=== PATIENT | male | born 1970 | race Caucasian/White ===

== ENCOUNTER 2019-07-11 16:02 | Emergency (ER) | payer OTHER, SELFPAY ==
--- NOTE | ~2019-07-11 | CT_ITS ---
EXAMINATION: CT facial bones w con EXAM DATE: 07/11/2019 18:02 INDICATION: Left mandibular swelling, tooth pain. TECHNIQUE: Spiral CT of the facial bones was acquired in the axial plane following intravenous inject ion of 75 mL Omnipaque 350. Coronal reformatted images were also reviewed. The dose-length product (DLP) for this examination was 720.99 mGy-cm. The exposure was tailored according to patient size, a nd iterative reconstruction (ASIR) was used as additional dose reduction technique. There is no prio r study for comparison. FINDINGS: There are multiple dental cavities. There is swelling over the left mandibular body and chi n. No facial abscess. Some reactive submandibular, internal jugular lymph nodes. Submandibular and pa rotid glands are unremarkable. There are no displaced nasal bone fractures. The mandible, sinuses and orbits are intact. The orbit s, globes and extraocular muscles are unremarkable. Bilateral cataract surgery. There is large left frontal sinus which is completely opacified, along with most of the left-sided et hmoid air cells. There is moderate right ethmoid and maxillary sinus mucoperiosteal thickening. Mild to moderate left maxillary sinus mucoperiosteal thickening. There is moderate leftward nasal septal d eviation. No sinus air-fluid levels. IMPRESSION: 1. Dental cavities, left facial swelling could be odontogenic. 2. Extensive sinus mucoperiosteal thickening. 3. No abscess. Reviewed, dictated and finalized at location A.
[2019-07-11 16:08] VITALS: BP 177/90; PULSE 65; RESP 16; TEMP 37.6; O2SAT 98
[2019-07-11 17:18] LABS: Basophils Percent Auto 0.6 % (0.2-1.2); Eosinophils Absolute Auto 0.1 K/mm3 (0-0.3); Eosinophils Percent Auto 0.7 % (0-4.4); Hematocrit 50.4 % (42.0-52.0); Immature Granulocyte Absolute 0.04 K/mm3 (0.00-0.031); Immature Granulocyte Percent A 0.6 % (0-0.5); Lymphocytes Absolute Auto 0.64 K/mm3 (0.9-3.2); Lymphocytes Percent Auto 9.2 % (18.3-44.2); Mean Corpuscular HGB Conc 33.7 g/dl (32-36); Mean Corpuscular Hemoglobin 34.3 pg (26-34); Mean Corpuscular Volume 101.6 fl (80-100); Mean Platelet Volume 9.9 fl (7.4-10.4); Monocytes Absolute Auto 0.9 K/mm3 (0.1-0.6); Monocytes Percent Auto 13.2 % (2.6-8.5); Neutrophils Absolute Auto 5.3 K/mm3 (1.3-6.7); Neutrophils Percent Auto 75.7 % (45.5-73.1); Platelet Count Result 159 k/mm3 (150-375); Red Blood Count 4.96 M/mm3 (4.6-6.20); Red Cell Distribution Width 12.2 % (11.5-14.5)
[2019-07-11 17:33] LABS: Blood Urea Nitrogen 4 mg/dL (9-20); CRP 4.3 mg/dL (<1.0); Calcium 9.5 mg/dL (8.4-10.2); Carbon Dioxide 28 mmol/L (22-30); Chloride 97 mmol/L (98-107); Estimated CRCL calculation 139 ml/min; Estimated Glomerular Filt Rate > 60; Glucose 101 mg/dL (75-110); Sodium 132 mmol/L (137-145)
[2019-07-11 17:43] LABS: Erythrocyte Sedimentation Rate 5 mm/hr (0-20)
--- NOTE | 2019-07-11 18:18 | ED.DENTAL ---
HPI - Dental/Oral General Chief complaint: Dental/Oral <RAYN Mehta Last Filed: 07/11/19 19:23> Stated complaint: tooth infection <RYAN Mehta Last Filed: 07/11/19 19:23> Time Seen by Provider: 07/11/19 16:49 <RYAN Mehta Last Filed: 07/11/19 19:23> Source: patient <RYAN Mehta Last Filed: 07/11/19 19:23> Mode of arrival: ambulatory <RYAN Mehta Last Filed: 07/11/19 19:23> Limitations: no limitations <RYAN Mehta Last Filed: 07/11/19 19:23> History of Present Illness HPI Narrative: This is a 48 year old male that presents to the ER for toothache for the last week. Reports pain in multiple teeth on the left side of the mouth. Reports swelling to the lower jaw. Reports he has not seen a dentist in some time due to insurance issues. Reports multiple broken teeth. Denies fever, or drainage. <RYAN Mehta Last Filed: 07/11/19 19:23> MD Complaint: tooth pain <RYAN Mehta Last Filed: 07/11/19 19:23> Location: Tooth # (10,11 and 20) <RYAN Mehta Last Filed: 07/11/19 19:23> Related Data Home medications: Home Medications Medication Instructions Recorded Confirmed albuterol sulfate 1 inh INHALATION Q4-5H PRN 07/11/19 famotidine 20 mg PO DAILY 07/11/19 fluticasone propion-salmeterol 1 inh INHALATION DAILY 07/11/19 losartan 25 mg PO DAILY 07/11/19 <RYAN Mehta Last Filed: 07/11/19 19:23> Allergies/adverse reactions: Allergies Allergy/AdvReac Type Severity Reaction Status Date / Time No Known Allergies Allergy Unverified 07/11/19 16:20 <RYAN Mehta Last Filed: 07/11/19 19:23> Review of Systems Review of Systems: Narrative: CONSTITUTIONAL: Denies fever ENT: Reports dentalgia. Denies dysphagia RESPIRATORY: Denies dyspnea <Charisma Bryant PA-C - Last Filed: 07/11/19 19:23> All systems reviewed & are unremarkable except as noted in HPI and below <Charisma Bryant PA-C - Last Filed: 07/11/19 19:23> PMFSH Past Medical History Medical History: Medical History (Updated 07/11/19 @ 19:22 by Charisma Bryant PA-C) History of asthma History of gastroesophageal reflux (GERD) History of hypertension <Charisma Bryant PA-C - Last Filed: 07/11/19 19:23> Social History Social History: Social History (Updated 07/11/19 @ 18:23 by Charisma Bryant PA-C) Smoking status: Current every day smoker <Charisma Bryant PA-C - Last Filed: 07/11/19 19:23> Exam Narrative: Exam Narrative: GENERAL: Well-appearing, well-nourished, and in no acute distress. HEAD: Normocephalic, atraumatic. EYES: EOMI. ENT: Mucous membranes moist. Oropharynx without tonsillar hypertrophy exudate or other lesions. No trismus. Poor dentition. Multiple broken and rotten teeth. No evidence of dental abscess. Mild edema over the left mandible NECK: Supple. No adenopathy or masses. CHEST: Clear to auscultation. No respiratory distress. No wheezes rales or rhonchi HEART: Regular rate and rhythm. No murmur heard. Normal peripheral pulses. ABDOMEN: Soft, nontender, nondistended, normal active bowel sounds. EXTREMITIES: Normal range of motion. No edema. SKIN: Warm, dry, no rash. NEURO: No focal deficits. Alert and oriented x3. PSYCH: Normal mood and affect <Charisma Bryant PA-C - Last Filed: 07/11/19 19:23> Course Vital Signs Vital signs: Vital Signs Temperature 99.6 F 07/11/19 16:08 Pulse Rate 65 07/11/19 16:08 Respiratory Rate 16 07/11/19 16:08 Blood Pressure 177/90 H 07/11/19 16:08 Pulse Oximetry 98 07/11/19 16:08 Temperature 99.6 F 07/11/19 16:08 Pulse Rate 78 07/11/19 19:45 Respiratory Rate 20 07/11/19 19:45 Blood Pressure 168/98 H 07/11/19 19:45 Pulse Oximetry 98 07/11/19 19:45 <Charisma Bryant PA-C - Last Filed: 07/11/19 19:23> Vital Signs Temperature 99.6 F 07/11/19 16:08 P
[2019-07-11] MEDS: CLINDAMYCIN 600 MG/NS 50 ML 600 MG/50 ML PIGGYBACK 100 MG IVPB (18:55)
[2019-07-11 19:45] VITALS: BP 168/98; PULSE 78; RESP 20; O2SAT 98
== END 2019-07-11 19:47 | disposition home or self-care (01) ==
PROVIDERS: Physician Assistant; Emergency Provider Emergency Medicine
DX: K04.7 Periapical abscess without sinus (principal); J45.909 Unspecified asthma, uncomplicated; K21.9 Gastro-esophageal reflux disease without esophagitis; I10 Essential (primary) hypertension; F17.200 Nicotine dependence, unspecified, uncomplicated
CPT/HCPCS: 36415; 70487; 80048; 85025; 85652; 86140; 96365; 99284; A9270; Q9967

== ENCOUNTER 2021-05-31 13:59 | Observation (INO) | payer OTHER, SELFPAY ==
[2021-05-31] VITALS (16 sets, daily range): BP systolic 114–157; BP diastolic 63–82; PULSE 76–97; RESP 15–21; TEMP 36.6–37.7; O2SAT 93–98; BMI 30.9
--- NOTE | ~2021-05-31 | XR_ITS ---
EXAMINATION: XR chest 1V portable Exam Date/Time: 05/31/2021 16:05 CDT CLINICAL HISTORY: chest pain, syncope, HTN Comparison: 12/30/2017 RESULT: Lines, tubes, and devices: None. Lungs and pleura: Clear. Cardiomediastinal silhouette: Stable cardiomediastinal silhouette. Other: No acute osseous or upper abdominal finding. IMPRESSION: No acute cardiopulmonary process. Reviewed, dictated and finalized at location K.
--- NOTE | ~2021-05-31 | NM_ITS ---
EXAMINATION: NM ryland stress w perfusion DATE: 06/02/2021 15:21 INDICATION: Chest pain. Syncope. TECHNIQUE: Rest images were obtained following intravenous administration of 10.1 mCi Tc99m tetrofosm in (Myoview). The patient was infused intravenously with Lexiscan (regadenoson). Then, 29.2 mCi Tc99m tetrofosmin (Myoview) was administered intravenously, and stress images were obtained. Data was abdi nstructed into short axis and horizontal and vertical long axis SPECT images. Gated SPECT images were also obtained. COMPARISON: None. FINDINGS: Increased activity below the diaphragm decreases sensitivity and specificity in the inferio r wall. There is no definite reversible or fixed perfusion abnormality to suggest ischemia or infarct ion. There is no segmental wall motion abnormality. Left ventricular ejection fraction measures 65% . IMPRESSION: 1. No definite ischemia or infarct. 2. Normal left ventricular ejection fraction measuring 65%. Reviewed, dictated and finalized at location A.
--- NOTE | ~2021-05-31 | CT_ITS ---
EXAMINATION: CT brain wo con DATE: 06/02/2021 08:32 INDICATION: Syncope. TECHNIQUE: Computed tomography (CT) of the head was performed without intravenous contrast. The mA wa s adjusted according to patient size. Iterative reconstruction technique was employed. The dose-lengt h product was 681.00 mGy-cm. COMPARISON: Head CT 12/30/2017 FINDINGS: There is no intracranial hemorrhage, acute infarction, or abnormal intracranial mass lesion . The ventricles are normal in size. There are likely changes of ocular lens replacement surgeries. T here is mucosal thickening in the paranasal sinuses. The mastoid air cells are normal. IMPRESSION: 1. Normal brain. Reviewed, dictated and finalized at location A. IMPRESSION: 1. Normal brain.
--- NOTE | ~2021-05-31 | US_ITS ---
EXAMINATION: US carotid duplex BI DATE: 06/01/2021 09:22 INDICATION: Transient alteration of awareness TECHNIQUE: Grayscale, color Doppler, and pulsed Doppler images of the cervical carotid arteries were obtained. The degree of vessel stenosis is placed in one of the following categories: normal, <50%, 5 0-69%, >=70% but less than near-occlusion, near-occlusion, or total occlusion. Note that percent sten osis relative to normal distal artery lumen diameter is indirectly measured from velocity measurement s as described by Stephen, et al. Radiology 2003; 229:[id number]. COMPARISON: None. FINDINGS: RIGHT: The right common carotid artery (CCA) peak systolic velocity (PSV) is 89 cm/s. The right internal car otid artery (ICA) PSV is 65 cm/s. The right ICA end-diastolic velocity (EDV) is 14 cm/s. The right IC A/CCA PSV ratio is 0.7. Grayscale and color Doppler images yield an estimate of less than 50% diamete r reduction from plaque in the ICA. The external carotid artery (ECA) PSV is 110 cm/s. There is anteg rade flow in the right vertebral artery. LEFT: The left CCA PSV is 79 cm/s. The left ICA PSV is 73 cm/s. The left ICA EDV is 18 cm/s. The left ICA/C CA PSV ratio is 0.9. Grayscale and color Doppler images yield an estimate of less than 50% diameter r eduction from plaque in the ICA. The ECA PSV is 96 cm/s. There is antegrade flow in the left vertebra l artery. IMPRESSION: 1. <50% stenosis in the right internal carotid artery. 2. <50% stenosis in the left internal carotid artery. Reviewed, dictated and finalized at location A.
--- NOTE | 2021-05-31 14:12 | ECG_ITS ---
Measurements Intervals [place] Rate: 81 P: 63 [place]: 156 QRS: -27 QRSD: 97 T: 72 QT: 385 QTc: 449 Interpretive Statements SINUS RHYTHM BASELINE ARTIFACT LEADS I AND II NONSPECIFIC ST & T-WAVE ABNORMALITY BORDERLINE ECG NO PREVIOUS ECG AVAILABLE FOR COMPARISON Electronically Signed On 06-01-2021 16:11:01 CDT by Jack Gutierrez M.D.
[2021-05-31 14:24] LABS: Basophils Percent Auto 0.4 % (0.2-1.2); Eosinophils Absolute Auto 0.1 K/mm3 (0-0.3); Eosinophils Percent Auto 0.9 % (0-4.4); Hematocrit 53.1 % (42.0-52.0); Hemoglobin 17.9 g/dL (14.0-18.0); Immature Granulocyte Absolute 0.04 K/mm3 (0.00-0.031); Immature Granulocyte Percent A 0.5 % (0-0.5); Lymphocytes Absolute Auto 0.77 K/mm3 (0.9-3.2); Lymphocytes Percent Auto 10.4 % (18.3-44.2); Mean Corpuscular HGB Conc 33.7 g/dl (32-36); Mean Corpuscular Hemoglobin 34.3 pg (26-34); Mean Corpuscular Volume 101.7 fl (80-100); Mean Platelet Volume 9.6 fl (7.4-10.4); Monocytes Absolute Auto 0.5 K/mm3 (0.1-0.6); Monocytes Percent Auto 6.2 % (2.6-8.5); Neutrophils Absolute Auto 6.1 K/mm3 (1.3-6.7); Neutrophils Percent Auto 81.6 % (45.5-73.1); Platelet Count Result 194 k/mm3 (150-375); Red Blood Count 5.22 M/mm3 (4.6-6.20); Red Cell Distribution Width 12.9 % (11.5-14.5); White Blood Count 7.4 K/mm3 (4.5-10.0)
[2021-05-31 14:43] LABS: Alanine Aminotransferase 29 U/L (4-50); Albumin Level 4.5 g/dL (3.5-5.1); Alkaline Phosphatase 52 U/L (38-126); Anion Gap 14 mmol/L (8-16); Aspartate Amino Transferase 43 U/L (17-59); Bilirubin,Total 0.6 mg/dL (0.2-1.3); Blood Urea Nitrogen 9 mg/dL (9-20); Carbon Dioxide 22 mmol/L (22-30); Chloride 108 mmol/L (98-107); Estimated CRCL calculation 110 ml/min; Estimated Glomerular Filt Rate > 60; Glucose 124 mg/dL (65-110); Potassium 3.8 mmol/L (3.4-5.0); Sodium 144 mmol/L (137-145)
--- NOTE | 2021-05-31 14:44 | ED.SYNCOPE ---
HPI - Syncope General Chief Complaint: Syncope Stated Complaint: syncopal episode Time Seen by Provider: 05/31/21 14:26 Source: patient Mode of arrival: ambulatory Limitations: no limitations History of Present Illness HPI narrative: 50-year-old male presents emergency room secondary to syncopal episode. He states he was at home and went to the bathroom and came out and felt dizzy and weak and passed out. He woke up people around him stating medialized. Patient has been having chest discomfort the last several weeks which she has been ignoring. He describes his discomfort across his chest with radiation to both of his arms. He is also complains of nonspecific abdominal pain states has had bloody stools. He has underlying history of COPD as well as hypertension but is not compliant with taking any of his medications. He has been smoking for over 45 years from the alcohol having had 2 drinks already today. Related Data Home Medications Medication Instructions Recorded Confirmed No Home Medications 05/31/21 05/31/21 Allergies Allergy/AdvReac Type Severity Reaction Status Date / Time No Known Allergies Allergy Verified 05/31/21 14:22 Review of Systems Review of Systems: CONSTITUTIONAL: Denies fever, chills, or sweats. EYES: Denies visual changes, redness, or discharge. ENT: Denies rhinorrhea, congestion, sore throat, or otalgia. CARDIOVASCULAR: Denies palpitations, or edema. Having chest pain as noted in HPI RESPIRATORY: Denies cough or dyspnea. GASTROINTESTINAL: Denies abdominal nausea, vomiting, or diarrhea. Bloody stools passing clots at time. Having some nonspecific abdominal pain GENITOURINARY: Denies dysuria or hematuria. SKIN: Denies rash or itching. MUSCULOSKELETAL: Denies back pain, joint pain, or myalgia. NEUROLOGIC: Denies headache, numbness, or weakness. PSYCHIATRIC: Denies anxiety or depression. [facility] Past Medical History Medical History (Updated 05/31/21 @ 15:55 by Tania Oliver PA-C) Dyslipidemia Gastroesophageal reflux disease Hypertension Surgical History Surgical History (Updated 05/31/21 @ 15:54 by Tania Oliver PA-C) History of bilateral cataract extraction Social History Social History (Updated 05/31/21 @ 15:55 by Tania Oliver PA-C) Social History: Lives in [place]. Smokes Surrogate decision maker: Code status: Full code. Exam Narrative: APPEARANCE: Well appearing, no pain in distress, well-nourished. Head normocephalic atraumtaic. EYES: PERRLA/EOMI, conjunctivae very clear. NOSE: Normal no drainage EARS:TMS clear Fito Henderson, with good light reflex. THROAT: Pharynx clear, no exudate. NECK: Supple. No adenopathy, no masses. RESPIRATORY: Airway patent, repsirations nonlabored. Clear to auscultation bilaterally, no rales, rhonchi, wheezing. CARDIOVASCULAR: Regular rate and rhythm without murmurs rubs or gallops. ABDOMINAL: Soft, nontender, nondistended, no hepatosplenomegally MUSCULOSKELETAl: Moves all extremities. Strenght/ROM intact, No edema, No calf tenderness. NEURO: Alert. Cranial nerves II through XII intact. Good gait. Good coordination SKIN:: Warm, dry. Normal Color PSYCHIATRIC: Normal affect/mood, normal interaction with parents. Rectal: No masses. Faintly hemoccult positive Course Vital Signs Vital signs: Vital Signs Temperature 97.9 F 05/31/21 14:08 Pulse Rate 89 05/31/21 14:08 Respiratory Rate 18 05/31/21 14:08 Blood Pressure 142/68 H 05/31/21 14:08 Pulse Oximetry 96 05/31/21 14:08 Temperature 97.9 F 05/31/21 14:08 Pulse Rate 93 05/31/21 14:13 Respiratory Rate 18 05/31/21 14:08 Blood Pressure 142/68 H 05/31/21 14:08 Pulse Oximetry 96 05/31/21 14:08 MDM - Syncope MDM Narrative Medical decision making narrative: Patient presents with multiple complaints including a syncopal episode today. He states he been having more bloody stools lately with blood clots. Has some nonspecific abdominal
[2021-05-31 15:18] LABS: Partial Thromboplastin Time 26.4 SECONDS (22.3-36.8)
[2021-05-31 15:23] LABS: Prothrombin Time 13.2 Seconds (11.1-14.7); Troponin I < 0.012 ng/mL (0.000-0.034)
--- NOTE | 2021-05-31 15:50 | PM.IMHP ---
H&P: HPI History of Present Illness Date/Time: 05/31/21 15:50 <Tania Olievr PA-C - Last Filed: 05/31/21 21:51> Chief Complaint: Syncope. <Tania Oliver PA-C - Last Filed: 05/31/21 21:51> Narrative: This is a 50-year-old male smoker with untreated hypertension and sleep apnea who presented to the emergency department via EMS for evaluation after syncopal episode. Not long prior to arrival he ?started to feel weird? and he walked to the bathroom where he reportedly had a normal bowel movement. As he stood up to exit to the restroom he began feeling very weak and lightheaded and the next thing he knew he was waking up with multiple people around him. Those nearby him reported that he had a brief loss of consciousness and there was no mention of seizure-like activity. He was brought to the ER for evaluation at which time he reported intermittent low sternal chest discomfort that he describes as aching and occasionally stabbing in nature. At times it radiates into the arms. These symptoms are self-limiting and seem to last for only a short period of time. It is my understanding that this has been ongoing for several weeks and he sees no significant pattern as to when it occurs, specifically denying that the chest discomfort is associated with exertion or eating. Additionally he has had occasional lower abdominal cramping and he has noticed small amounts of bright red blood per rectum with some but not all bowel movements. He has no known hemorrhoids and he denies straining with bowel movements. He has occasional GERD symptoms but nothing significant however he notes an increase in belching recently. EKG done on arrival showed no acute ST segment changes and his initial troponin level was undetectable. He is feeling okay at the time my evaluation and he is not having any discomfort. He has no known history of cardiac disease and in fact he had a stress echo in 12/2017 which showed no evidence of ischemia. He did headache, vertigo, focal weakness, paresthesias, cold and flu symptoms, GERD symptoms, nausea, vomiting, diarrhea, shortness of breath, pleuritic pain, palpitations, and edema. No significant alcohol, caffeine, or NSAID use. <Tania Oliver PA-C - Last Filed: 05/31/21 21:51> Review of Systems Review of Systems: Twelve systems were reviewed and are negative except for as per HPI. <Tania Oliver PA-C - Last Filed: 05/31/21 21:51> [facility] Past Medical History Medical History: Medical History Dyslipidemia Gastroesophageal reflux disease Hypertension Obstructive sleep apnea Tobacco use <Tania Oliver PA-C - Last Filed: 05/31/21 21:51> Surgical History Surgical History: Surgical History (Updated 05/31/21 @ 15:54 by Tania Oliver PA-C) History of bilateral cataract extraction <Tania Oliver PA-C - Last Filed: 05/31/21 21:51> Family History Family History: Family History (Updated 05/31/21 @ 21:43 by Tania Oliver PA-C) Mother Cancer Father Acute myocardial infarction Cerebrovascular accident Kidney failure <Tania Oliver PA-C - Last Filed: 05/31/21 21:51> Social History Social History: Social History (Updated 05/31/21 @ 21:44 by Tania Oliver PA-C) Social History: Lives in [place]. Smokes about 10 cigarettes a day, rolls his own. Drinks 4 to 5 beers a couple of days a week. No illicit substance use. Surrogate decision maker: Cyn Marr, significant other. Code status: Do not resuscitate. Spiritual care concerns: No <Tania Oliver PA-C - Last Filed: 05/31/21 21:51> Meds Home Medications and Allergies Home medications: Home Medications Medication Instructions Recorded Confirmed Type No Home Medications 05/31/21 05/31/21 History <Tania Oliver PA-C - Last Filed: 05/31/21 21:51> Allergies/Adverse reactions: Allergies Allergy/AdvReac Type Severity Reaction Status Date
--- NOTE | 2021-05-31 17:41 | ADMGEN ---
This patient, Kodak Nguyen, was admitted to 3 [facility] Surg Room 327-01 at 1705. Patient/family oriented to hospital policies and general routines including ID bracelet, bed and alarms, visiting hours, pain management, procedures, bathroom and other care routines, personal items, smoking policy, room service/diet, and visiting hours. Information on how to activate the Rapid Response Team has been discussed. Patient/Family are encouraged to report perceived risks to care and to ask questions if they do not understand what they are told or what they should do.
--- NOTE | 2021-05-31 17:52 | PC.NURSE ---
pts chewing tobacco in locked closet in room.
[2021-05-31 22:11] LABS: Hematocrit 49.4 % (42.0-52.0); Hemoglobin 16.5 g/dL (14.0-18.0)
[2021-05-31 22:35] LABS: Troponin I < 0.012 ng/mL (0.000-0.034)
[2021-06-01] VITALS (14 sets, daily range): BP systolic 162–191; BP diastolic 77–109; PULSE 58–80; RESP 16–18; TEMP 36.5–36.7; O2SAT 96–97
[2021-06-01 06:11] LABS: Hematocrit 50.6 % (42.0-52.0); Hemoglobin 16.6 g/dL (14.0-18.0); Mean Corpuscular HGB Conc 32.8 g/dl (32-36); Mean Corpuscular Hemoglobin 33.3 pg (26-34); Mean Corpuscular Volume 101.6 fl (80-100); Mean Platelet Volume 9.8 fl (7.4-10.4); Platelet Count Result 161 k/mm3 (150-375); Red Blood Count 4.98 M/mm3 (4.6-6.20); Red Cell Distribution Width 12.8 % (11.5-14.5); White Blood Count 6.5 K/mm3 (4.5-10.0)
[2021-06-01 06:21] LABS: Anion Gap 2 mmol/L (8-16); Blood Urea Nitrogen 11 mg/dL (9-20); Calcium 8.6 mg/dL (8.4-10.2); Carbon Dioxide 30 mmol/L (22-30); Chloride 104 mmol/L (98-107); Estimated CRCL calculation 108 ml/min; Estimated Glomerular Filt Rate > 60; Glucose 99 mg/dL (65-110); Magnesium 1.6 mg/dL (1.6-2.3); Potassium 3.9 mmol/L (3.4-5.0); Sodium 136 mmol/L (137-145)
[2021-06-01] MEDS: hydroCHLOROthiazide 25 MG TABLET PO (09:00)
[2021-06-01] MEDS: PANTOPRAZOLE 40 MG TABLET PO (09:00)
--- NOTE | 2021-06-01 10:23 | PM.IMPN ---
Progress Note: A&P Assessment and Plan (1) Syncope: Code(s): R55 - Syncope and collapse Status: Acute Assessment and Plan: Possible vasovagal or micturition syncope given the fact that he just use the restroom. Carotid US unremarkable. -Echo pending and may not be completed until Wednesday -June discharge pending completion of TTE (2) Hypertension: Code(s): I10 - Essential (primary) hypertension Status: Acute Assessment and Plan: Per report, patient stopped about a month ago. -Started HCTZ 25 mg po daily (3) Obstructive sleep apnea: Code(s): G47.33 - Obstructive sleep apnea (adult) (pediatric) Status: Acute Assessment and Plan: He has a CPAP at home however does not wear it. (4) Tobacco use: Code(s): Z72.0 - Tobacco use Status: Acute Assessment and Plan: Smoking cessation is encouraged. Nicotine patch available if needed. (5) Rectal bleeding: Code(s): K62.5 - Hemorrhage of anus and rectum Status: Acute Assessment and Plan: Stool guaiac. Need FIT testing outpatient vs colonoscopy as he has no screening colonoscopy. Subjective Date/time seen: Date of Service 06/01/21 1030 Patient denies chest pain, shortness of breath, difficulty breathing. Says he had a syncopal episode a few years ago but was never told the cause. He says he has not seen his doctor in 2-3 years but that he was scheduled for appointment on June 10. Review of Systems Cardiovascular: Cardiovascular: Denies chest pain, Denies lightheadedness and Denies palpitations Respiratory: Respiratory: Denies dyspnea Exam Narrative: GENERAL: NAD, cooperative HEENT: Normocephalic, atraumatic, anicteric, NECK:Supple CV: Normal S1, S2, RRR, No MRG RESP: CTAB, Normal work of breathing. Abdomen: Soft, non-tender, non-distended, +BS : Deferred rectal EXTREMITIES: Warm and well perfused, no clubbing, cyanosis, or edema. SKIN: warm, dry and intact. NEURO:CN 2-12 grossly intact. Objective Data Vital Signs Vital Signs: Vital Signs - 24 hr 05/31/21 14:08 05/31/21 14:13 05/31/21 14:40 Temperature 97.9 F Pulse Rate 89 93 77 Respiratory Rate 18 21 H Blood Pressure 142/68 H Pulse Oximetry 96 95 05/31/21 14:45 05/31/21 14:47 05/31/21 15:03 Temperature Pulse Rate 78 79 77 Respiratory Rate 21 H 21 H 20 Blood Pressure 120/63 Pulse Oximetry 93 94 95 05/31/21 15:15 05/31/21 15:30 05/31/21 15:32 Temperature Pulse Rate 79 80 76 Respiratory Rate 18 18 15 Blood Pressure 117/79 Pulse Oximetry 96 95 96 05/31/21 15:45 05/31/21 15:47 05/31/21 16:00 Temperature Pulse Rate 81 76 87 Respiratory Rate 17 18 21 H Blood Pressure 114/69 Pulse Oximetry 96 98 05/31/21 17:00 05/31/21 17:15 05/31/21 20:00 Temperature 98.5 F Pulse Rate 97 81 85 Respiratory Rate 20 16 Blood Pressure 130/82 144/72 H Pulse Oximetry 98 96 05/31/21 22:00 06/01/21 00:00 06/01/21 04:00 Temperature 99.8 F H Pulse Rate 80 80 68 Respiratory Rate 16 Blood Pressure 157/82 H Pulse Oximetry 94 06/01/21 06:00 06/01/21 08:00 Temperature 97.8 F Pulse Rate 63 58 L Respiratory Rate 16 Blood Pressure 162/99 H Pulse Oximetry 97 Intake/Output Intake/Output: Intake & Output 05/29/21 05/30/21 05/31/21 06/01/21 23:59 23:59 23:59 23:59 Intake Total 1110 Balance 1110 Meds/Results Medications: Active Medications Generic Name Dose Route Start Last Admin Trade Name Freq PRN Reason Stop Dose Admin Hydrochlorothiazide 25 mg 06/01/21 09:00 06/01/21 09:00 Hydrochlorothiazide 25 Mg Tablet PO 25 mg QAM TANNER Administration Nicotine 1 patch 05/31/21 18:03 Nicotine (*Pbkc) 21 Mg Patch TRANSDERM QAM PRN Nicotine Cravings Pantoprazole Sodium 40 mg 06/01/21 09:00 06/01/21 09:00 Pantoprazole 40 Mg Tablet PO 40 mg QAM TANNER Administration Perflutren Lipid Microsphere
[2021-06-01] MEDS: hydrALAZINE HCL 20 MG/ML VIAL 10 MG IV PUSH (16:10)
[2021-06-02] VITALS (9 sets, daily range): BP systolic 138–185; BP diastolic 83–97; PULSE 61–91; RESP 18–19; TEMP 36.2–37.4; O2SAT 96–97
[2021-06-02] MEDS: PANTOPRAZOLE 40 MG TABLET PO (09:06)
[2021-06-02] MEDS: hydroCHLOROthiazide 25 MG TABLET PO (09:06)
--- NOTE | 2021-06-02 09:07 | PM.IMPN ---
Progress Note: A&P Assessment and Plan (1) Syncope: Code(s): R55 - Syncope and collapse Status: Acute Assessment and Plan: Possible vasovagal or micturition syncope given the fact that he just use the restroom. Trop negative x2. Carotid US unremarkable. Echo pending. EKG showing lateral T wave changes (new from 2018). Check CT brain. Repeat EKG. NPO for possible stress test. (2) Hypertension: Code(s): I10 - Essential (primary) hypertension Status: Acute Assessment and Plan: Per report, patient stopped treatment about a month ago. HCTZ started but BP still elevated. Add Lisinopril. (3) Obstructive sleep apnea: Code(s): G47.33 - Obstructive sleep apnea (adult) (pediatric) Status: Acute Assessment and Plan: He is noncompliant with CPAP at home. Compliance was encouraged. Will make his BP harder to control (4) Tobacco use: Code(s): Z72.0 - Tobacco use Status: Acute Assessment and Plan: Urbanon smokes 1/2 ppd. The benefits of smoking cessation were discussed. (5) Rectal bleeding: Code(s): K62.5 - Hemorrhage of anus and rectum Status: Acute Assessment and Plan: Stool guaiac ordered. FIT testing unnecessary since patient needs colonoscopy for his symptoms and for screening purposes. This can be done as outpatient. (6) Chest pain: Code(s): R07.9 - Chest pain, unspecified Status: Acute Assessment and Plan: Patient with chest pain and now with syncopal episode. He does state that his chest pain worsens when he gets upset or emotional. Trop negative but with high lateral T wave changes. Repeat EKG and f/u on Echo results. NPO for possible stress test. Check Lipid panel to furthe risk stratify. Subjective Date/time seen: 06/02/21 09:07 Interval history: 50yo male with untreated HTN and ELVIA here for syncope. Assuming care. Chart reviewed. He complains of lower abdominal pain at times better after a BM. He has been having episodes of rectal bleeding but denies hemorrhoids or rectal burning/itching. Per chart review, stress Echo in 2018 was negative. Drinks 4 beers per week on avaerage Exam Narrative: AF 97.2 185/87 61 81 97% ra Gen - NARD Chest - distant BS CV - RRR S1/S2 Abd - Soft, NT/ND, Positive BS Ext - No pedal edema, 2+ PT bilaterally Psych - Nml mood and affect Skin - Warm and dry Objective Data Vital Signs Vital Signs: Vital Signs - 24 hr 06/01/21 12:00 06/01/21 14:00 06/01/21 16:00 Temperature 98.0 F Pulse Rate 64 69 66 Respiratory Rate 18 Blood Pressure 184/77 H Pulse Oximetry 96 06/01/21 20:00 06/01/21 20:05 06/01/21 20:08 Temperature Pulse Rate 61 75 74 Respiratory Rate Blood Pressure 184/90 H 177/95 H Pulse Oximetry 06/01/21 21:05 06/01/21 21:10 06/02/21 00:00 Temperature 97.7 F Pulse Rate 63 72 78 Respiratory Rate 18 Blood Pressure 184/90 H 178/109 H Pulse Oximetry 96 06/02/21 04:00 06/02/21 06:00 Temperature 97.2 F L Pulse Rate 68 61 Respiratory Rate 18 Blood Pressure 185/87 H Pulse Oximetry 97 Intake/Output Intake/Output: Intake & Output 05/30/21 05/31/21 06/01/21 06/02/21 23:59 23:59 23:59 23:59 Intake Total 2260 500 Balance 2260 500 Meds/Results Medications: Active Medications Generic Name Dose Route Start Last Admin Trade Name Freq PRN Reason Stop Dose Admin Hydralazine HCl 10 mg 06/01/21 15:43 06/01/21 16:10 Hydralazine Hcl 20 Mg/Ml Vial IV PUSH 10 mg Q8H PRN Administration Blood Pressure - High Hydrochlorothiazide 25 mg 06/01/21 09:00 06/02/21 09:06 Hydrochlorothiazide 25 Mg Tablet PO 25 mg QAM TANNER Administration Nicotine 1 patch 05/31/21 18:03 Nicotine (*Pbkc) 21 Mg Patch TRANSDERM QAM PRN Nicotine Cravings Pantoprazole Sodium 40 mg 06/01/21 09:00 06/02/21 09:06 Pantoprazole 40 Mg Tablet PO 40 mg QAM TANNER Administra
--- NOTE | 2021-06-02 09:14 | ECG_ITS ---
Measurements Intervals [place] Rate: 63 P: 55 [place]: 153 QRS: -15 QRSD: 94 T: 74 QT: 430 QTc: 442 Interpretive Statements SINUS RHYTHM INFERIOR MYOCARDIAL INFARCTION , PROBABLY OLD Electronically Signed On 06-02-2021 15:51:12 CDT by Gm Anton M.D.
[2021-06-02 10:11] LABS: Cholesterol 156 mg/dL (0-200); HDL Direct 48 mg/dL; Triglycerides 181 mg/dL (<150)
[2021-06-02 10:26] LABS: LDL Cholesterol Direct 70 mg/dL
[2021-06-02] MEDS: lisinopriL 10 MG TABLET PO (11:12)
[2021-06-02 11:28] LABS: Folic Acid 9.4 ng/mL (2.76->20)
--- NOTE | 2021-06-02 11:33 | EST_ITS ---
Patient Info Name: Kodak Nguyen Age: 50 years : 1970 Gender: Male Ht: 76 in Wt: 245 lbs BSA: 2.46 m2 Exam Date: 06/02/2021 2:27 PM Exam Location: [facility] Stress Patient Status: Inpatient Admit Date: 05/31/2021 Staff Ordering Physician: Milton Martinez MD Attending Provider: Jodi Stout MD Exercise Technologist: Diamond Mittal CT Nurse: YEISON TRUONG NP Exam Type: CA stress ryland w NM Study Info Indications R07.9 - Chest pain, unspecified A regadenoson stress test was performed. Summary 1. ECG portion of the pharmacological stress test is negative for ischemia by EKG criteria. Correlate with myocardial perfusion imaging. Protocol: Lexiscan Stress ECG Details Stage: REST Duration (min): 1 min : 24 sec HR (bpm): 78 SBP (mmHg): 126 DBP (mmHg): 82 Stage: REST Duration (min): 10 min : 47 sec HR (bpm): 103 SBP (mmHg): 126 DBP (mmHg): 82 Stage: STAGE 1 Duration (min): 1 min : 0 sec HR (bpm): 86 SBP (mmHg): 142 DBP (mmHg): 107 Stage: RECOVERY Duration (min): 1 min : 0 sec HR (bpm): 95 SBP (mmHg): 142 DBP (mmHg): 107 Stage: RECOVERY Duration (min): 2 min : 0 sec HR (bpm): 91 SBP (mmHg): 142 DBP (mmHg): 107 Stage: RECOVERY Duration (min): 3 min : 0 sec HR (bpm): 92 SBP (mmHg): 147 DBP (mmHg): 90 Stage: RECOVERY Duration (min): 3 min : 2 sec HR (bpm): 92 SBP (mmHg): 147 DBP (mmHg): 90 Rest HR: 103 bpm Peak HR: 98 bpm Rest Sys BP: 126 mmHg Peak Sys BP: 147 mmHg Max Pred HR: 170 bpm % Max Pred HR: 58 % Target HR: 145 bpm Max RPP: 14,406 bpm*mmHg Total Time: 1 min : 0 sec Rest Lazcano BP: 82 mmHg Peak Lazcano BP: 90 mmHg Total Dose: 0.4 mg Resting ECG SINUS RHYTHM, NONSPECIFIC ST-T ABNORMALITY. Stress ECG Did not meet criteria for ischemia. Arrhythmias No significant arrhythmias. Report Signatures
--- NOTE | 2021-06-02 16:01 | PM.DS ---
DS: Admitting Diagnosis Discharge Date 06/02/21 Admitting Diagnosis Syncope DS: Discharge Diagnosis Discharge Diagnosis (1) Syncope: Code(s): R55 - Syncope and collapse Status: Acute (2) Hypertension: Code(s): I10 - Essential (primary) hypertension Status: Acute (3) Obstructive sleep apnea: Code(s): G47.33 - Obstructive sleep apnea (adult) (pediatric) Status: Acute (4) Tobacco use: Code(s): Z72.0 - Tobacco use Status: Acute (5) Rectal bleeding: Code(s): K62.5 - Hemorrhage of anus and rectum Status: Acute (6) Chest pain: Code(s): R07.9 - Chest pain, unspecified Status: Acute DS: Summary Hospital Course Reason for hospitalization: 50yo male with untreated HTN and ELVIA here for syncope. Please see H&P for details. Hospital Course: Patient was in the bathroom in a trailer that was hot. He began to have pre-syncopal symptoms and left the trailer and went to sit outside but then had a syncopal episode. He has been complaining of chest pain for a few weeks prior to this event. Trop negative x2. Carotid US unremarkable. Echo showing EF 60-65%, Grade II diastolic dysfunction and elevated RA pressure. EKG showing nonspecific ST changes; repeat EKG showing old inferior OK. CT brain showing no acute findings. Lexiscan Stress test performed showing increased activity below the diaphragm which decreases sensitivity and specificity in the inferior wall but no definite reversible or fixed perfusion abnormality to suggest ischemia or infarction. No segmental wall motion. Per report, patient stopped anti-HTN treatment about a month ago. HCTZ started and Lisinopril added. He is noncompliant with CPAP at home and compliance was encouraged. Uncontrolled ELVIA will make his BP harder to control. The benefits of smoking cessation were discussed. B12 level checked due to elevated MCV. B12 was 266. B12 IM once given. Patient has been complaining of intermittent rectal bleeding and lower abdominal pain. Stool guaiac ordered but not collected. HH remained normal. FIT testing unnecessary since patient needs colonoscopy for his symptoms and for screening purposes which can be done as outpatient. Patient has an appointment with his PCP on 06/10 and he will discuss with PCP about arranging for an outpatient colonoscopy. Patient feels well. He overall did well and was able to be discharged home on 06/02/21. Status at Discharge Cognitive/behavioral status at discharge: Stable Time Spent with Patient Time attestation: Total time spent providing and/or coordinating discharge services: 38 minutes Time spent: Greater than 30 minutes Exam Narrative: AF 97.2 185/87 61 81 97% ra Gen - NARD Chest - distant BS CV - RRR S1/S2 Abd - Soft, NT/ND, Positive BS Ext - No pedal edema, 2+ PT bilaterally Psych - Nml mood and affect Skin - Warm and dry DS: Data Data Completed and Pending Labs on day of discharge: Labs from last 24 hours 06/02/21 06/02/21 06/02/21 12:12 09:43 09:43 Triglycerides 181 H Cholesterol 156 LDL Cholesterol Direct 70 HDL Direct 48 Vitamin B12 266.0 Methylmalonic Acid Pending Folate 9.4 TSH (Reflex) 2.700 Discharge Plan Discharge Attending physician on discharge: Milton Martinez Discharging Clinician: Milton Martinez Anticipated Discharge Date/Time: 06/02/21 16:18 Patient Disposition: Home, Self-Care Activity: as tolerated Diet: heart healthy Discharge Instructions: No smoking and avoid all tobacco products. Remember to wear your CPAP at night and with naps Please avoid large gathering, wear face coverings in public and practice social distance. Check blood pressure 1 to 2 times a day. Record and bring into your doctor for review. Call your doctor if your blood pressure is greater than 180/110. Contact your doctor or call 911 and come to the Emergency Room if you have recurrent chest p
--- NOTE | 2021-06-02 21:50 | ECHO_ITS ---
Patient Info Name: Kodak Nguyen Age: 50 years : 1970 Gender: Male Ht: 76 in Wt: 253 lbs BSA: 2.50 m2 HR: 75 bpm BP: 178 / 109 mmHg Exam Date: 06/02/2021 9:00 AM Exam Location: [facility] Pulmonary Patient Status: Outpatient Admit Date: 05/31/2021 Staff Ordering Physician: Tania Oliver PA-C Car Parker: Jeff Ellis RDCS, RT Attending Provider: Jodi Stout MD Referring Physician: Melody LANDRY; Exam Type: CA echo doppler color flow Study Info Indications R55 - Syncope and collapse Complete two-dimensional, color flow and Doppler transthoracic echocardiogram is performed. Strain analysis performed. Summary 1. Complete two-dimensional, color flow and Doppler transthoracic echocardiogram is performed. 2. Left ventricular chamber dimension is normal. 3. Left ventricular systolic function is normal, estimated at 60-65%. 4. The left ventricular diastolic function is grade II diastolic dysfunction. 5. E/e' 6 is not elevated. 6. Global longitudinal strain is normal at -17.1%. 7. There is trace mitral valve regurgitation. 8. Dilated inferior vena cava with >50% collapse upon inspiration consistent with elevated right atrial pressure, 10 mmHg. Left Ventricle E/e' 6 is not elevated. Global longitudinal strain is normal at -17.1%. Left ventricular chamber dimension is normal. Left ventricular systolic function is normal, estimated at 60-65%. The left ventricular diastolic function is grade II diastolic dysfunction. Right Ventricle Right ventricular systolic function is normal amd with normal TAPSE 2.5 cm. Right ventricular chamber dimension is normal. Left Atria Left atrial chamber dimension is normal. Right Atria Right atrial chamber dimension is normal. Aortic Valve The aortic valve is trileaflet. There is no aortic valve stenosis. There is no aortic valve regurgitation. Pulmonic Valve There is no pulmonic regurgitation. Mitral Valve There is no mitral valve stenosis. There is trace mitral valve regurgitation. Tricuspid Valve There is no tricuspid valve regurgitation. Pericardium/Pleural There is no pericardial effusion. Inferior Vena Cava Dilated inferior vena cava with >50% collapse upon inspiration consistent with elevated right atrial pressure, 10 mmHg. Aorta The aortic root size at the sinus of Valsalva is normal. Left Ventricular Outflow Tract Name Value Normal LVOT 2D LVOT Diameter 2.3 cm LVOT Doppler LVOT Peak Gradient 4 mmHg LVOT Mean Gradient 2 mmHg LVOT VTI 21 cm LVOT VTI/AV VTI Ratio 0.9 LVOT Stroke Volume 84 ml LVOT CO 5.7 l/min LVOT CI 2.3 l/min/m2 Mitral Valve Name Value Normal MV Doppler
[2021-06-05 11:09] LABS: Methylmalonic Acid 145 nmol/L (87-318)
--- NOTE | 2021-06-10 07:37 | PC.NURSE ---
MMA WNL at 145. Dr. Martinez aware.
== END 2021-06-02 16:47 | disposition home or self-care (01) ==
LOC: ANHED 16:04 → ANH3MEDSUR 17:47
PROVIDERS: Emergency Medicine; Physician Assistant; Admitting Provider Family Medicine; Emergency Provider Emergency Medicine; Visit Provider Internal Medicine
DX: R55 Syncope and collapse (principal); R07.9 Chest pain, unspecified; G47.33 Obstructive sleep apnea (adult) (pediatric); I11.9 Hypertensive heart disease without heart failure; I25.2 Old myocardial infarction; E78.5 Hyperlipidemia, unspecified; F17.210 Nicotine dependence, cigarettes, uncomplicated; K62.5 Hemorrhage of anus and rectum; K21.9 Gastro-esophageal reflux disease without esophagitis; Z98.41 Cataract extraction status, right eye; Z91.19 Patient's noncompliance with other medical treatment and regimen; Z28.21 Immunization not carried out because of patient refusal; Z98.42 Cataract extraction status, left eye
CPT/HCPCS: 36415; 70450; 71045; 78452; 80048; 80053; 80061; 82607; 82746; 83735; 83921; 84443; 84484; 85014; 85018; 85025; 85027; 85610; 85730; 93005; 93017; 93306; 93880; 96374; 99285; A9270; A9502; G0378; G0379; J0360

== ENCOUNTER 2022-04-15 18:52 | Emergency (ER) | payer OTHER, SELFPAY ==
--- NOTE | ~2022-04-15 | CT_ITS ---
EXAMINATION: CT abdomen pelvis w con DATE: 04/16/2022 01:30 INDICATION: Left lower quadrant abdominal pain. Epigastric abdominal pain. TECHNIQUE: Computed tomography (CT) of the abdomen and pelvis was performed with 100 mL Omnipaque 350 intravenous contrast. Automated exposure control and iterative reconstruction technique were employe d. The dose-length product was 1250.16 mGy-cm. COMPARISON: None. FINDINGS: The visualized portions of the lung bases demonstrate minimal atelectasis on the left. No p leural effusion. The heart size is normal. No pericardial effusion. There is wall thickening of dista l esophagus. The liver, gallbladder, spleen, pancreas, and adrenal glands are normal. There is a 7.5 cm enhancing mass in right kidney. There is a 5.6 cm cyst in left kidney. There is a parenchymal calc ification in left kidney. There is prominent fat in left inguinal canal that may be a hernia. There i s diverticulosis of the colon without evidence of diverticulitis. There are no dilated loops of bowel . The appendix is normal. There are no pathologically enlarged lymph nodes. There is no free intraper itoneal fluid. There is mild thoracic spondylosis and moderate lumbar spondylosis. There is mild spice grinder yumiko anterior wedging of multiple thoracic vertebral bodies. IMPRESSION: 1. 7.5 cm mass in right kidney, consistent with renal cell carcinoma. 2. Wall thickening of the distal esophagus, likely esophagitis. Reviewed, dictated and finalized at location A. FISHING VESSEL
--- NOTE | ~2022-04-15 | XR_ITS ---
EXAMINATION: XR chest 1V portable DATE: 04/16/2022 02:20 INDICATION: Left chest pain. TECHNIQUE: A single frontal view of the chest was obtained. COMPARISON: Chest single view 05/31/2021, CT abdomen and pelvis 04/16/2022 FINDINGS: The chest demonstrates clear lungs without pneumonia, pleural effusion, or pneumothorax. Th e heart size is normal. IMPRESSION: 1. No acute cardiopulmonary disease. Reviewed, dictated and finalized at location A. LS ANALYST
--- NOTE | 2022-04-15 18:58 | ECG_ITS ---
Measurements Intervals [place] Rate: 86 P: 21 NM: 124 QRS: -5 QRSD: 90 T: 10 QT: 372 QTc: 447 Interpretive Statements SINUS RHYTHM VOLTAGE CRITERIA FOR LVH [MEETS CRITERIA IN ONE OF: R(aVL), S(V1), R(V5), R(V5/V6)+S(V1)] INFERIOR MYOCARDIAL INFARCTION , PROBABLY OLD [40+ ms Q WAVE AND/OR ST/T ABNORMALITY IN II/aVF] COMPARED TO ECG 06/02/2021 10:30:07 LEFT VENTRICULAR HYPERTROPHY NOW PRESENT Electronically Signed On 04-16-2022 14:51:09 QUALITY CONTROL OPERATOR by Dante Merritt M.D.
[2022-04-15 19:29] VITALS: BP 148/82; PULSE 87; RESP 20; TEMP 36.2; O2SAT 95
[2022-04-15 19:53] LABS: Basophils Absolute Auto 0.1 K/mm3 (0.0-0.1); Basophils Percent Auto 0.9 % (0.2-1.2); Eosinophils Absolute Auto 0.3 K/mm3 (0-0.3); Eosinophils Percent Auto 3.5 % (0-4.4); Hematocrit 47.3 % (42.0-52.0); Hemoglobin 16.4 g/dL (14.0-18.0); Immature Granulocyte Absolute 0.02 K/mm3 (0.00-0.031); Immature Granulocyte Percent A 0.3 % (0-0.5); Lymphocytes Absolute Auto 1.91 K/mm3 (0.9-3.2); Lymphocytes Percent Auto 24.1 % (18.3-44.2); Mean Corpuscular HGB Conc 34.7 g/dl (32-36); Mean Corpuscular Hemoglobin 34.5 pg (26-34); Mean Corpuscular Volume 99.6 fl (80-100); Mean Platelet Volume 10.2 fl (7.4-10.4); Monocytes Absolute Auto 0.5 K/mm3 (0.1-0.6); Monocytes Percent Auto 6.4 % (2.6-8.5); Neutrophils Absolute Auto 5.2 K/mm3 (1.3-6.7); Neutrophils Percent Auto 64.8 % (45.5-73.1); Platelet Count Result 230 k/mm3 (150-375); Red Blood Count 4.75 M/mm3 (4.6-6.20); White Blood Count 7.9 K/mm3 (4.5-10.0)
[2022-04-15 20:05] LABS: Ethanol 221 mg/dL (<10)
[2022-04-15 20:07] LABS: Alanine Aminotransferase 21 U/L (6-50); Albumin Level 4.1 g/dL (3.5-5.1); Alkaline Phosphatase 51 U/L (38-126); Anion Gap 9 mmol/L (8-16); Aspartate Amino Transferase 28 U/L (17-59); Bilirubin,Total 0.4 mg/dL (0.2-1.3); Blood Urea Nitrogen 7 mg/dL (9-20); Calcium 8.1 mg/dL (8.4-10.2); Carbon Dioxide 22 mmol/L (22-30); Chloride 111 mmol/L (98-107); Estimated CRCL calculation 136 ml/min; Estimated Glomerular Filt Rate > 60; Glucose 117 mg/dL (65-110); Lipase 76 U/L (23-300); Potassium 3.4 mmol/L (3.4-5.0); Sodium 142 mmol/L (137-145)
[2022-04-15 20:09] LABS: Appearance Urine Clear (Clear); Bilirubin Urine Negative (Negative); Blood Urine Negative (Negative); Glucose Urine UA Negative (Negative); Ketones Urine Negative (Negative); Leukocyte Esterase Ur Negative LEU/UL (Negative); Nitrate Urine Negative (Negative); Protein Urine Negative (Negative); Specific Grav Ur <= 1.005 (1.001-1.035); Urobilinogen Urine 0.2 mg/dL (<2.0)
[2022-04-15 20:14] LABS: WBC Urine 0-3 /hpf
[2022-04-15 20:31] LABS: Add Urine Microscopic? NO; Color Urine Light Yellow (Yellow)
[2022-04-16] VITALS (29 sets, daily range): BP systolic 133–177; BP diastolic 72–109; PULSE 64–78; RESP 10–23; TEMP 37; O2SAT 84–100
--- NOTE | 2022-04-16 00:35 | ED.CHESTPAIN ---
HPI - Chest Pain General Chief Complaint: Chest Pain <RYAN Alcazar Last Filed: 04/16/22 04:31> Stated Complaint: chest pain, gi bleed <RYAN Alcazar Last Filed: 04/16/22 04:31> Time Seen by Provider: 04/16/22 00:04 <RYAN Alcazar Last Filed: 04/16/22 04:31> Source: patient <RYAN Alcazar Last Filed: 04/16/22 04:31> Mode of arrival: EMS <RYAN Alcazar Last Filed: 04/16/22 04:31> Limitations: no limitations <RYAN Alcazar Last Filed: 04/16/22 04:31> History of Present Illness HPI narrative: Patient is a 51 y/o male who presents to the ED via EMS with c/o chest pain and abdominal pain. Patient reports having intermittent lower midsternal/left-sided sharp aching chest pain over the last 3 to 4 days. Patient states pain is worse with when stressed and around others. Denies aggravation with exertion. He has not tried anything for pain. He states today he had some difficulty breathing with the chest pain, which prompted his presentation. A friend told him to come to the ED. Patient also reports having left lower abdominal pain for the past 1 year. He states pain has been worsening over the last 1 month. He has had intermittent rectal bleeding and melena, but denies any nausea, vomiting, fevers, cough or cold symptoms, lower extremity pain or swelling. Patient did admit to drinking 4-5 beers at a barbecue earlier today. He does not drink daily. <RYAN Alcazar Last Filed: 04/16/22 04:31> Related Data Allergies/Adverse Reactions: Allergies Allergy/AdvReac Type Severity Reaction Status Date / Time No Known Allergies Allergy Verified 04/16/22 00:08 <RYAN Alcazar Last Filed: 04/16/22 04:31> Review of Systems Review of Systems: CONSTITUTIONAL: Denies fever, chills, or sweats. ENT: Denies rhinorrhea, congestion, sore throat. CARDIOVASCULAR: See HPI. RESPIRATORY: See HPI. GASTROINTESTINAL: See HPI. GENITOURINARY: Denies dysuria or hematuria. <Sandra Friedman PA-C - Last Filed: 04/16/22 04:31> All systems reviewed & are unremarkable except as noted in HPI and below <Sadnra Friedman PA-C - Last Filed: 04/16/22 04:31> [facility] Past Medical History Medical History: Medical History Dyslipidemia Gastroesophageal reflux disease Hypertension Obstructive sleep apnea Tobacco use <Sandar Friedman PA-C - Last Filed: 04/16/22 04:31> Surgical History Surgical History: Surgical History History of bilateral cataract extraction <Sandra Friedman PA-C - Last Filed: 04/16/22 04:31> Family History Family History: Family History Mother Cancer Father Acute myocardial infarction Cerebrovascular accident Kidney failure <Sandra Friedman PA-C - Last Filed: 04/16/22 04:31> Social History Social History: Social History Social History: Lives in [place]. Smokes about 10 cigarettes a day, rolls his own. Drinks 4 to 5 beers a couple of days a week. No illicit substance use. Surrogate decision maker: Cyn Marr, significant other. Code status: Do not resuscitate. Spiritual care concerns: No <Sandra Friedman PA-C - Last Filed: 04/16/22 04:31> Exam Narrative: GENERAL: Chronically ill-appearing, obese, non-toxic, in no acute distress. Smells of EtOH. HEAD: Normocephalic, atraumatic. NECK: Supple. No adenopathy, no masses. RESPIRATORY: Airway patent, respirations nonlabored. Clear to auscultation bilaterally, no rales, rhonchi, wheezing. CARDIOVASCULAR: Regular rate and rhythm without murmurs, rubs, or gallops. Peripheral pulses 2+ and equal bilaterally. ABDOMINAL: Soft, tenderness to palpation throughout left lower abdom
[2022-04-16 01:04] LABS: D Dimer 0.38 ug/mL (<0.48)
[2022-04-16 01:21] LABS: Troponin I < 0.012 ng/mL (0.000-0.034)
== END 2022-04-16 04:26 | disposition home or self-care (01) ==
PROVIDERS: Emergency Provider Physician Assistant
DX: R10.30 Lower abdominal pain, unspecified (principal); N28.89 Other specified disorders of kidney and ureter; R07.89 Other chest pain; F17.210 Nicotine dependence, cigarettes, uncomplicated; K21.9 Gastro-esophageal reflux disease without esophagitis; I10 Essential (primary) hypertension; G47.30 Sleep apnea, unspecified
CPT/HCPCS: 36415; 71045; 74177; 80053; 80307; 81003; 83690; 84484; 85025; 85380; 93005; 99284; Q9967